=== PATIENT | male | born 1970 | race Caucasian/White ===

== ENCOUNTER 2018-01-20 12:29 | Emergency (ER) | payer BC ==
[~2018-01-20] VITALS: Ht 188 cm; Wt 82.0 kg
[2018-01-20] MEDS ORDERED: TETanus/Pertussis (Acell)/Diphther VAC/PF (Tdap-Adult) 0.5ml syringe IM ONE (12:55)
[2018-01-20] MEDS ORDERED: LIDOcaine 1.5% w/epinephrine 1:200,000 5ml ampul IJ ONE (12:55)
[2018-01-20 14:21] VITALS: BP 115/65
== END 2018-01-20 14:32 | disposition home or self-care (01) ==
LOC: ER 12:31
DX: S81.011A Laceration without foreign body, right knee, initial encounter (principal); W26.8XXA Contact with other sharp object(s), not elsewhere classified, initial encounter; Y93.89 Activity, other specified; Y92.828 Other wilderness area as the place of occurrence of the external cause; Y99.8 Other external cause status
CPT/HCPCS: 12004; 90471; 90715; 99284; A6223; A6257; A6258; A6446; A6449; J3490